=== PATIENT | male | born 1980 | race American Indian/Alaskan Native ===

== ENCOUNTER 2018-11-26 09:12 | Emergency (ER) | payer MEDICAID ==
[~2018-11-26] VITALS: Ht 182.9 cm; Wt 93.4 kg
[2018-11-26 09:12] VITALS: BP_SYST 160
--- NOTE | 2018-11-26 09:12 | NUR ---
BROUGHT BACK TO BED #8 VIA WHEELCHAIR, PLACED IN BED AND TRIAGED. REPORT GIVEN TO EYAL
--- NOTE | 2018-11-26 09:15 | NUR ---
Patient arrived via POV, AAOx4, and ambulatory with guarding to abdomen. Patient c/c of abdominal pain 10/10, sharp to left lower abdomen, and upon palpation pressure radiates to left testicle. Pain began approximately 0300, and has been constant for 6 hours. Nausea, vomiting, diarrhea present. Patient states unable to tolerate food or fluids. He drank green gatorade prior to arrival, and is actively vomiting. Patients girlfriend at bedside. States he has been off heroine for 3 weeks, he is trying to get into a skilled nursing house. Patient has history of diverticulitis and colitis.
--- NOTE | 2018-11-26 09:25 | NUR ---
ER at bedside examining patient.
[2018-11-26] MEDS: ONDANSETRON HCL 4 MG/2 ML VIAL IVP ONE (09:47)
[2018-11-26] MEDS: MORPHINE 4 MG/ML INJ. SYRINGE IVP ONE (09:48)
--- NOTE | 2018-11-26 09:49 | NUR ---
Patient taken to CT scan via gurney, patient medicated for pain prior to taking patient.
--- NOTE | 2018-11-26 09:55 | NUR ---
Patient returned from CT scan in stable condition. Patient requesting pain medication upon return. aware.
[2018-11-26 10:09] LABS: BASOPHILS % (AUTO) 0.4 % (0.0-2.0); EOSINOPHILS % (AUTO) 0.1 % (0.0-4.0); HEMATOCRIT 43.8 % (36-54); HEMOGLOBIN 15.1 g/dL (14.0-18.0); LYMPHOCYTES # (AUTO) 1.7 K/uL (1.0-5.5); LYMPHOCYTES % (AUTO) 17.6 % (20.5-51.5); MEAN CORPUSCULAR HEMOGLOBIN 31 pg (27-31); MEAN CORPUSCULAR HGB CONC 35 % (32-36); MEAN CORPUSCULAR VOLUME 91 fL (79.0-98.0); MONOCYTES # (AUTO) 0.4 K/uL (0.0-1.0); MONOCYTES % (AUTO) 4.1 % (1.7-9.3); NEUTROPHILS # (AUTO) 7.6 K/uL (1.8-7.7); NEUTROPHILS % (AUTO) 77.8 % (40.0-70.0); PLATELET COUNT (AUTO) 272 K/uL (130-430); RED BLOOD CELL COUNT(AUTO) 4.82 MIL/uL (4.2-6.2); RED CELL DISTRIBUTION WIDTH 13.6 % (9.0-15.0); WHITE BLOOD COUNT (AUTO) 9.8 K/uL (4.8-10.8)
[2018-11-26] MEDS: MORPHINE 2 MG/ML INJ. SYRINGE IM ONE (10:13)
[2018-11-26] MEDS: NACL 0.9% 1,000 ML IV ONE ×2 (10:13→11:20)
[2018-11-26 10:23] LABS: CALCIUM 9.3 mg/dL (8.4-11.0); CREATININE 1.02 mg/dL (0.55-1.30); POTASSIUM 3.4 mmol/L (3.5-5.1)
[2018-11-26 10:26] LABS: INR 0.9 (0.80-1.20); PROTHROMBIN TIME 9.6 SECS (9.5-12.5)
[2018-11-26 10:33] LABS: ALBUMIN 3.7 g/dL (3.4-4.8); TOTAL BILIRUBIN 0.4 mg/dL (0.0-1.0)
--- NOTE | 2018-11-26 10:58 | NUR ---
Patient requesting another blanket, temperature at 99.7, encouraged to remove current blanket to reduce temperature.
[2018-11-26] MEDS: CIPROFLOXACIN HCL 500 MG TABLET PO ONE (11:21)
[2018-11-26] MEDS: POTASSIUM CHLORIDE 10 MEQ TAB.PRT.SR PO ONE (11:21)
[2018-11-26] MEDS: metroNIDAZOLE 500 MG TABLET PO ONE (11:21)
[2018-11-26] MEDS: MORPHINE 2 MG/ML INJ. SYRINGE IVP ONE (11:21)
--- NOTE | 2018-11-26 12:32 | NUR ---
Patient given written and verbal discharge instructions and verbalizes understanding. ER MD Puckett discussed with patient the results and treatment provided. Patient in stable condition. ID arm band removed. IV catheter removed intact and dressing applied, no active bleeding. Rx of Colace, Cipro, Flagyl, Tramadol. Zofran given. Patient educated on pain management and to follow up with PMD. Pain Scale 0. Opportunity for questions provided and answered. Medication side effect fact sheet provided.
[2018-11-26 12:33] VITALS: BP_SYST 148
== END 2018-11-26 12:32 | disposition home or self-care (01) ==
LOC: SED 09:12
DX: K52.9 Noninfective gastroenteritis and colitis, unspecified (principal)
CPT/HCPCS: 36415; 74176; 80053; 83690; 85025; 85610; 85730; 96361; 96372; 96374; 96375; 96376; 99284; J2270 ×2; J2405; J7030